=== PATIENT | female | born 1980 | race Two or more races ===

== ENCOUNTER 2016-06-30 16:36 | Emergency (ER) | payer MEDICAID ==
[~2016-06-30] VITALS: Ht 165.1 cm; Wt 59.0 kg
[2016-06-30 18:36] VITALS: BP 122/78
[2016-06-30 18:53] LABS: Urine Bilirubin Negative (Negative); Urine Blood Negative /uL (Negative); Urine Color Yellow (Yellow); Urine Glucose Normal (Normal); Urine Ketone Negative (Negative); Urine Nitrite Negative (Negative); Urine RBC 1 /hpf (0 - 4); Urine Squamous Epithelial Cell FEW /hpf (<5); Urine Urobilinogen Normal (Negative); Urine pH 5.5 (5.0-8.0)
== END 2016-06-30 19:04 | disposition home or self-care (01) ==
LOC: ER 16:46
DX: O23.41 Unspecified infection of urinary tract in pregnancy, first trimester (principal); Z3A.08 8 weeks gestation of pregnancy
CPT/HCPCS: 81001

== ENCOUNTER → 2016-11-06 | Outpatient (CLI) | payer MEDICAID ==
[2016-11-06 08:14] LABS: Basophils # (auto) 0 uL; Basophils % (auto) 0.5 % (0.0-2.0); CONDITION Y; Eosinophils # (auto) 0.5 uL; Eosinophils % (auto) 5.3 % (0.0-7.0); Hematocrit 33.8 % (36.0-46.0); Hemoglobin 11.5 g/dL (12.2-16.2); Lymphocytes # (auto) 1.7 uL; Lymphocytes % (auto) 19.8 % (10.0-50.0); Mean Corpuscular Hemoglobin 31.4 pg (28.0-32.0); Mean Corpuscular Hgb Conc. 34.1 g/dL (32.0-36.0); Mean Corpuscular Volume 92.1 fL (80.0-100.0); Mean Platelet Volume 8.1 fL (7.4-10.4); Monocytes # (auto) 0.6 uL; Monocytes % (auto) 6.5 % (0.0-12.0); Neutrophils # (auto) 5.9 uL; Neutrophils % (auto) 67.9 % (37.0-80.0); Platelet Count (auto) 292 10^3/uL (140-450); Red Cell Distribution Width 14.1 % (11.6-16.0); White Blood Cell 8.7 10^3/uL (4.4-10.8)
== END | disposition home or self-care (01) ==
LOC: LAB 07:43
PROVIDERS: ATTEND Specialist
DX: O99.810 Abnormal glucose complicating pregnancy (principal); Z3A.28 28 weeks gestation of pregnancy
CPT/HCPCS: 36415; 82951; 85025

== ENCOUNTER 2016-12-11 14:00 | Observation (INO) | payer MEDICAID | END 2016-12-11 16:35 | disposition home or self-care (01) | DRG 566 | LOC: LDRP 14:00 | PROVIDERS: ADMIT Obstetrics & Gynecology; ATTEND Obstetrics & Gynecology | DX: O24.419 Gestational diabetes mellitus in pregnancy, unspecified control (principal); Z3A.32 32 weeks gestation of pregnancy | CPT/HCPCS: 59025; 76818; 81002; 82948; 82962; G0378 ==

== ENCOUNTER 2016-12-16 08:05 | Observation (INO) | payer MEDICAID ==
[2016-12-16] MEDS ORDERED: PREN-96 PO (09:43)
== END 2016-12-16 09:40 | disposition home or self-care (01) | DRG 566 ==
LOC: LDRP 08:05
PROVIDERS: ADMIT Specialist; ATTEND Specialist
DX: O24.410 Gestational diabetes mellitus in pregnancy, diet controlled (principal); Z3A.32 32 weeks gestation of pregnancy
CPT/HCPCS: 59025; 76818; 81002; 82962; G0378

== ENCOUNTER 2016-12-19 18:59 | Observation (INO) | payer MEDICAID ==
[~2016-12-19 18:59] MED LIST: PREN-96 PO
== END 2016-12-19 20:35 | disposition home or self-care (01) | DRG 566 ==
LOC: LDRP 18:59
PROVIDERS: ADMIT Obstetrics & Gynecology; ATTEND Obstetrics & Gynecology
DX: O24.419 Gestational diabetes mellitus in pregnancy, unspecified control (principal); Z3A.33 33 weeks gestation of pregnancy
CPT/HCPCS: 59025; 76818; 81002; 82962; G0378

== ENCOUNTER 2016-12-23 10:05 | Observation (INO) | payer MEDICAID ==
[2016-12-23 11:09] LABS: Urine Bilirubin Negative (Negative); Urine Blood Negative /uL (Negative); Urine Color Yellow (Yellow); Urine Glucose Normal (Normal); Urine Ketone 2+ (Negative); Urine Mucus FEW (None Seen); Urine Nitrite Negative (Negative); Urine RBC 1 /hpf (0 - 4); Urine Squamous Epithelial Cell MOD /hpf (<5); Urine Urobilinogen Normal (Negative); Urine pH 6.5 (5.0-8.0)
== END 2016-12-23 11:40 | disposition home or self-care (01) | DRG 566 ==
LOC: LDRP 10:05
PROVIDERS: ADMIT Obstetrics & Gynecology; ATTEND Obstetrics & Gynecology
DX: O24.419 Gestational diabetes mellitus in pregnancy, unspecified control (principal); Z3A.33 33 weeks gestation of pregnancy
CPT/HCPCS: 59025; 76818; 81001; 81002; 82948; 82962; G0378

== ENCOUNTER 2016-12-28 17:00 | Observation (INO) | payer MEDICAID | END 2016-12-28 18:05 | disposition home or self-care (01) | DRG 566 | LOC: LDRP 17:00 | PROVIDERS: ADMIT Specialist; ATTEND Specialist | DX: O24.410 Gestational diabetes mellitus in pregnancy, diet controlled (principal); Z3A.34 34 weeks gestation of pregnancy | CPT/HCPCS: 59025; 76818; 81002; 82962; G0378 ==

== ENCOUNTER 2017-01-02 17:00 | Observation (INO) | payer MEDICAID | END 2017-01-02 19:48 | disposition home or self-care (01) | DRG 566 | LOC: LDRP 17:00 | PROVIDERS: ADMIT Specialist; ATTEND Specialist | DX: O24.419 Gestational diabetes mellitus in pregnancy, unspecified control (principal); O40.3XX0 Polyhydramnios, third trimester, not applicable or unspecified; Z3A.35 35 weeks gestation of pregnancy | CPT/HCPCS: 59025; 76818; 81002; 82962; G0378 ==

== ENCOUNTER 2017-01-05 18:46 | Observation (INO) | payer MEDICAID | END 2017-01-05 20:34 | disposition home or self-care (01) | DRG 566 | LOC: LDRP 18:46 | PROVIDERS: ADMIT Obstetrics & Gynecology; ATTEND Obstetrics & Gynecology | DX: O24.419 Gestational diabetes mellitus in pregnancy, unspecified control (principal); Z3A.35 35 weeks gestation of pregnancy | CPT/HCPCS: 59025; 76818; 81002; 82948; 82962; G0378 ==

== ENCOUNTER → 2017-01-16 | Outpatient (CLI) | payer MEDICAID ==
[2017-01-16 12:38] LABS: Basophils # (auto) 0.1 uL; Basophils % (auto) 0.8 % (0.0-2.0); Eosinophils # (auto) 0.2 uL; Hematocrit 37.9 % (36.0-46.0); Lymphocytes # (auto) 1.5 uL; Lymphocytes % (auto) 19.5 % (10.0-50.0); Mean Corpuscular Hemoglobin 31.6 pg (28.0-32.0); Mean Corpuscular Hgb Conc. 34.3 g/dL (32.0-36.0); Mean Corpuscular Volume 92.2 fL (80.0-100.0); Monocytes # (auto) 0.5 uL; Monocytes % (auto) 6.7 % (0.0-12.0); Neutrophils # (auto) 5.6 uL; Nucleated Red Blood Cells % 0.2 %; Platelet Count (auto) 249 10^3/uL (140-450); Red Cell Distribution Width 13.9 % (11.8-14.3); White Blood Cell 7.9 10^3/uL (4.4-10.8)
== END | disposition home or self-care (01) ==
LOC: LAB 12:15
PROVIDERS: ATTEND Specialist
DX: Z34.80 Encounter for supervision of other normal pregnancy, unspecified trimester (principal)
CPT/HCPCS: 36415; 85025

== ENCOUNTER 2017-01-19 18:43 | Observation (INO) | payer MEDICAID ==
[~2017-01-19] VITALS: Ht 165.1 cm; Wt 63.5 kg
[2017-01-19] MEDS ORDERED: [UNRECOGNIZED DRUG - CODE] PO (19:54)
== END 2017-01-19 20:16 | disposition home or self-care (01) | DRG 566 ==
LOC: LDRP 18:43
PROVIDERS: ADMIT Obstetrics & Gynecology; ATTEND Obstetrics & Gynecology
DX: O24.419 Gestational diabetes mellitus in pregnancy, unspecified control (principal); Z3A.37 37 weeks gestation of pregnancy
CPT/HCPCS: 59025; 76818; 81002; G0378

== ENCOUNTER 2017-01-26 19:06 | Observation (INO) | payer MEDICAID ==
[~2017-01-26 19:06] MED LIST changes: +[UNRECOGNIZED DRUG - CODE] PO
== END 2017-01-26 21:04 | disposition home or self-care (01) | DRG 566 ==
LOC: LDRP 19:06
PROVIDERS: ADMIT Specialist; ATTEND Specialist
DX: O36.8190 Decreased fetal movements, unspecified trimester, not applicable or unspecified (principal); Z3A.00 Weeks of gestation of pregnancy not specified
CPT/HCPCS: 59025; 76818; 81002; G0378

== ENCOUNTER → 2017-03-16 | Outpatient (CLI) | payer MEDICAID | END | disposition home or self-care (01) | LOC: LAB 09:18 | PROVIDERS: ATTEND Obstetrics & Gynecology | DX: Z39.2 Encounter for routine postpartum follow-up (principal); O99.810 Abnormal glucose complicating pregnancy; Z3A.00 Weeks of gestation of pregnancy not specified | CPT/HCPCS: 36415; 82951 ==

== ENCOUNTER 2020-03-30 14:20 | Observation (INO) | payer MEDICAID | END 2020-03-30 17:02 | disposition home or self-care (01) | LOC: LDRP 14:20 | PROVIDERS: ADMIT Specialist; ATTEND Specialist | DX: O24.419 Gestational diabetes mellitus in pregnancy, unspecified control (principal); Z20.822 Contact with and (suspected) exposure to COVID-19; Z3A.35 35 weeks gestation of pregnancy | CPT/HCPCS: 59025; 76818; 81002; 82948; 82962; G0378; U0003 ==

== ENCOUNTER 2020-04-06 15:12 | Observation (INO) | payer MEDICAID ==
[~2020-04-06] VITALS: Ht 165.1 cm; Wt 62.6 kg
== END 2020-04-06 17:15 | disposition home or self-care (01) ==
LOC: LDRP 15:12
PROVIDERS: ADMIT Specialist; ATTEND Specialist
DX: O24.419 Gestational diabetes mellitus in pregnancy, unspecified control (principal); Z3A.36 36 weeks gestation of pregnancy
CPT/HCPCS: 59025; 76818; 81002; 82948; 82962; G0378

== ENCOUNTER 2020-04-09 14:43 | Observation (INO) | payer MEDICAID | END 2020-04-09 16:49 | disposition home or self-care (01) | LOC: LDRP 14:43 | PROVIDERS: ADMIT Obstetrics & Gynecology; ATTEND Obstetrics & Gynecology | DX: O24.419 Gestational diabetes mellitus in pregnancy, unspecified control (principal); O26.893 Other specified pregnancy related conditions, third trimester; R10.9 Unspecified abdominal pain; Z3A.37 37 weeks gestation of pregnancy | CPT/HCPCS: 59025; 76818; 81002; 82948; 82962; G0378 ==

== ENCOUNTER 2020-04-13 14:59 | Observation (INO) | payer MEDICAID | END 2020-04-13 16:27 | disposition home or self-care (01) | LOC: LDRP 14:59 | PROVIDERS: ADMIT Specialist; ATTEND Specialist | DX: O24.419 Gestational diabetes mellitus in pregnancy, unspecified control (principal); Z3A.37 37 weeks gestation of pregnancy | CPT/HCPCS: 59025; 76818; 81002; 82948; 82962; G0378 ==

== ENCOUNTER 2020-04-20 15:07 | Observation (INO) | payer MEDICAID | END 2020-04-20 16:30 | disposition home or self-care (01) | LOC: LDRP 15:07 | PROVIDERS: ADMIT Obstetrics & Gynecology; ATTEND Obstetrics & Gynecology | DX: O24.419 Gestational diabetes mellitus in pregnancy, unspecified control (principal); O09.523 Supervision of elderly multigravida, third trimester; Z3A.38 38 weeks gestation of pregnancy | CPT/HCPCS: 59025; 76818; 81002; 82948; 82962; G0378 ==

== ENCOUNTER 2020-04-23 16:40 | Observation (INO) | payer MEDICAID ==
[2020-04-23] MEDS ORDERED: PRENTAB40 OR (19:55)
== END 2020-04-23 20:12 | disposition home or self-care (01) ==
LOC: LDRP 16:40
PROVIDERS: ADMIT Obstetrics & Gynecology; ATTEND Obstetrics & Gynecology
DX: O62.9 Abnormality of forces of labor, unspecified (principal); O46.93 Antepartum hemorrhage, unspecified, third trimester; O09.523 Supervision of elderly multigravida, third trimester; O24.419 Gestational diabetes mellitus in pregnancy, unspecified control; O98.513 Other viral diseases complicating pregnancy, third trimester; B00.9 Herpesviral infection, unspecified; Z3A.39 39 weeks gestation of pregnancy
CPT/HCPCS: 59025; 76818; 81002; 82948; 82962; 94760; G0378

== ENCOUNTER 2020-04-24 17:43 | Inpatient (IN) | payer MEDICAID ==
[~2020-04-24] VITALS: Ht 165.1 cm; Wt 64.4 kg
[~2020-04-24 17:43] MED LIST changes: +PRENTAB40 OR
[2020-04-24] MEDS ORDERED: miSOPROStol 100 mcg TAB ONE (18:05)
[2020-04-24] MEDS ORDERED: LIDOCAINE 2%HCL (LOCAL ANESTH.) INJ 20ML MDV ONE (18:05)
[2020-04-24] MEDS ORDERED: DERMOPLAST 60ML BOTTLE TOP ONE (18:06)
[2020-04-24] MEDS ORDERED: WITCH HAZEL-GLYCERIN PAD TOP ONE (18:06)
[2020-04-24] MEDS ORDERED: PHISODERM TOP SOLN 240ML BTL TOP ONE (18:06)
[2020-04-24] MEDS ORDERED: LACT. RINGERS/OXYTOCIN 20UNITS 1,000 ML IV ONE ×2 (18:07→19:15)
[2020-04-24] MEDS ORDERED: METHYLERGONOVINE MALEATE 0.2 MG/ML AMP IM ONE (18:07)
[2020-04-24] MEDS ORDERED: PENICILLIN G POT 5MIL/D5 50ML 50 ML IV ONE ×2 (18:08→18:15)
[2020-04-24] MEDS ORDERED: WITCH HAZEL-GLYCERIN PAD TOP PRN (18:15)
[2020-04-24] MEDS ORDERED: DERMOPLAST 60ML BOTTLE TOP PRN (18:15)
[2020-04-24] MEDS ORDERED: LACTATED RINGER'S 1,000 ML IV SCH (18:15)
[2020-04-24] MEDS ORDERED: miSOPROStol 50 MCG per PRE-CUT 1/2 TAB PO PRN (18:15)
[2020-04-24] MEDS ORDERED: PHISODERM TOP SOLN 240ML BTL TOP PRN (18:15)
[2020-04-24] MEDS ORDERED: LIDOCAINE 2%HCL (LOCAL ANESTH.) INJ 20ML MDV IJ ONE (18:15)
[2020-04-24] MEDS ORDERED: IBUPROFEN 600 MG TAB PO PRN (19:15)
[2020-04-24 19:38] LABS: Basophils # (auto) 0 10 ^3/uL (0-0.2); Basophils % (auto) 0.2 % (0.0-2.0); Eosinophils # (auto) 0 10 ^3/uL (0-0.8); Eosinophils % (auto) 0.4 % (0.0-7.0); Hematocrit 38.1 % (36.0-46.0); Hemoglobin 13.2 g/dL (12.2-16.2); Lymphocytes # (auto) 1.9 10 ^3/uL (0.4-5.4); Lymphocytes % (auto) 18.6 % (10.0-50.0); Mean Corpuscular Hemoglobin 32.8 pg (28.0-32.0); Mean Corpuscular Hgb Conc. 34.6 g/dL (32.0-36.0); Mean Corpuscular Volume 94.8 fL (80.0-100.0); Monocytes # (auto) 0.6 10 ^3/uL (0-1.3); Monocytes % (auto) 6.2 % (0.0-12.0); Neutrophils # (auto) 7.7 10 ^3/uL (1.6-8.6); Neutrophils % (auto) 74.6 % (37.0-80.0); Platelet Count (auto) 235 10^3/uL (140-450); Red Blood Cells 4.02 10^6/uL (4.0-5.20); Red Cell Distribution Width 14.4 % (11.8-14.3); White Blood Cell 10.3 10^3/uL (4.4-10.8)
[2020-04-24 19:43] LABS: Urine Bacteria NONE SEEN /hpf (None Seen); Urine Blood 3+ /uL (Negative); Urine Specific Gravity 1.017 (1.001-1.035); Urine WBC 39 /hpf (0 - 5)
[2020-04-24 20:08] LABS: Alcohol, Urine < 3.0 mg/dL (0-10); Amphetamine Screen, Urine NEGATIVE (NEGATIVE); Barbiturate Scree,Urine NEGATIVE (NEGATIVE); Benzodiazephine Screen, Urine NEGATIVE (NEGATIVE); Cannabinoid Screen, Urine NEGATIVE (NEGATIVE); Cocaine Screen, Urine NEGATIVE (NEGATIVE); Opiate Scree,Urine NEGATIVE (NEGATIVE); Phencyclidine Screen, Urine NEGATIVE (NEGATIVE)
[2020-04-24] MEDS ORDERED: PENICILLIN G POTASSIUM 2,500,000 UNITS in D5W 5% 50 ML IV SCH (22:15)
[2020-04-24 23:00] VITALS: BP 91/53
[2020-04-25 03:00] VITALS: BP 92/55
[2020-04-25] MEDS: ACETAMINOPHEN 325 MG TAB PO PRN ×2 (03:23→14:30)
[2020-04-25 07:18] VITALS: BP 94/54
[2020-04-25 11:05] VITALS: BP 88/57
[2020-04-25 15:30] VITALS: BP 92/56
[2020-04-25 19:00] VITALS: BP 108/53
== END 2020-04-25 21:45 | disposition home or self-care (01) | DRG 560 ==
LOC: LDRP 17:43 → OBSVTOIN 17:50
PROVIDERS: ADMIT Obstetrics & Gynecology; ATTEND Obstetrics & Gynecology
PROC: 10E0XZZ Delivery of Products of Conception, External Approach (ICD-10-PCS; principal; 2020-04-24)
PROC: 0HQ9XZZ Repair Perineum Skin, External Approach (ICD-10-PCS; 2020-04-24)
PROC: 3E0P7VZ Introduction of Hormone into Female Reproductive, Via Natural or Artificial Opening (ICD-10-PCS; 2020-04-24)
DX: O24.429 Gestational diabetes mellitus in childbirth, unspecified control (principal); Z3A.39 39 weeks gestation of pregnancy; Z37.0 Single live birth; O70.0 First degree perineal laceration during delivery; Z20.822 Contact with and (suspected) exposure to COVID-19
CPT/HCPCS: 36415; 59025; 59409; 80307; 81001; 81002; 82947; 82962; 85025; 85384; 86592; 86703; 86762; 86850; 86900; 86901; 87340; 87426; 96360; 96361; 96365; 96366; 96372; G0378; J2540; J2590; J7060